=== PATIENT | male | born 1990 | race Caucasian/White ===

== ENCOUNTER 2018-12-11 10:16 | Emergency (ER) | payer OTHER ==
[2018-12-11] MEDS ORDERED: LIDOCAINE 1% 10 ML VIAL INJ ONE ×3 (10:20→10:50)
[2018-12-11] MEDS ORDERED: POVIDONE IODINE 10 % 15 ML UD TOP ONE (10:32)
[2018-12-11 10:57] VITALS: TEMP 97.6
[2018-12-11] MEDS ORDERED: NEOMYCIN-BACITRACIN-POLYMYXIN 0.9 GM UD TOP ONE (11:19)
[2018-12-11] MEDS ORDERED: TETANUS,DIPHTHERIA,PERTUSSIS 1 EA SYG IM ONE (11:25)
--- NOTE | 2018-12-11 11:28 | ED.PDOC ---
History of Present Illness - General Chief Complaint: Laceration Stated Complaint: laceration to palm of hand from glass Time Seen by Provider: 12/11/18 10:24 Additional Information: Pt w cc of lac to right hand. Pt was at home holding a glass and hit it on a table in frustration and cut his hand. No other injuries or complaints. Denies sensory changes or loss of motion to hand. - History of Present Illness Allergies/Adverse Reactions: Allergies NO KNOWN ALLERGY Allergy (Verified 12/11/18 10:26) Review of Systems - Review of Systems Constitutional: States: no symptoms reported EENTM: States: no symptoms reported Respiratory: States: no symptoms reported Cardiology: States: no symptoms reported Gastrointestinal/Abdominal: States: no symptoms reported Genitourinary: States: no symptoms reported Musculoskeletal: States: see HPI Skin: States: no symptoms reported Neurological: States: no symptoms reported Past Medical History (General) - Patient Medical History Hx Asthma: Yes Hx Cancer: No - Vaccination History Hx Tetanus, Diphtheria Vaccination: No Hx Influenza Vaccination: No Hx Pneumococcal Vaccination: No Immunizations Up to Date: No - Social History Hx Tobacco Use: No Hx Alcohol Use: No Hx Substance Use: No Hx Substance Use Treatment: No Hx Depression: No Family Medical History - Family History Mother Family History: Unknown Living Status: Still Living Physical Exam - Physical Exam General Appearance: Alert, No apparent distress, Well Developed, Well Nourished Respiratory: no respiratory distress Peripheral Pulses: radial,right: 2+ Extremity: normal range of motion, other - FROM R hand. Nl sensation to LT tips of all digits R/U aspect. Able to oppose thumb to SF. 6 cm lact transversely across palm. 2.5 cm lac at base of thumb, volar aspect. Progress - Progress Progress: 12/11/18 11:43 Pt w large lac to hand, sutured. No neurologic compromise, nl sensation and motion globally. D/w pt sutures out in 1 week, and no lifting with hand. Pt voices understanding and willingness to comply. Procedures - Laceration/Wound Repair Right Hand Wound's Depth, Shape: superficial Wound Explored: foreign body removed - single small piece of glass Irrigated w/ Saline (cc's): 500 Betadine Prep?: Yes Anesthesia: 1% Lidocaine Volume Anesthetic (cc's): 20 Wound Repaired With: sutures Suture Size/Type: 4:0, prolene Number of Sutures: 28 Sterile Dressing Applied?: Yes Departure - Departure Clinical Impression: Laceration Time of Disposition: 11:32 Disposition: Discharge to Home or Self Care Condition: Good Departure Forms: ED Discharge - Pt. Copy, Patient Portal Self Enrollment Instructions: How to Care for a Laceration After Repair, DI for Laceration Repair Diet: resume usual diet Activity: other - No swimming x 1 week. No lifting with right hand x 1 week. Referrals: CY ANTONY [Primary Care Provider] - 1-2 Weeks Additional Instructions: SUTURES OUT IN 1 WEEK. YOU MAY RETURN TO THE ER OR SEE YOUR DOCTOR.
[2018-12-11 11:47] VITALS: BP 103/61; O2SAT 98
== END 2018-12-11 11:45 | disposition home or self-care (01) ==
LOC: ER 10:16 → EDBD 10:16 → ER 11:45
DX: S61.421A Laceration with foreign body of right hand, initial encounter (principal); J45.909 Unspecified asthma, uncomplicated; W25.XXXA Contact with sharp glass, initial encounter; Y92.9 Unspecified place or not applicable